=== PATIENT | female | born 1955 | race African-American/Black ===

== ENCOUNTER 2016-05-11 10:14 | Inpatient (IN) | payer OTHER ==
[~2016-05-11] VITALS: Ht 167.6 cm; Wt 51.6 kg
[~2016-05-11 10:14] MED LIST: ALPR1TAB2 PO; CYCL10TA3 OR; DIAZ-104 PO; OMEP20CA5 PO; OXY5T PO; SIMV-8 OR; TEMA15CA91 PO
[2016-05-11] MEDS ORDERED: SODIUM CHLORIDE 0.9% 1,000 ML IV ONE (10:52)
[2016-05-11 11:20] LABS: DEFINITIVE VIEW TRANSMISSION; Eosinophils # (auto) 0.1 uL; Hemoglobin 14.2 g/dL (12.2-16.2); Lymphocytes # (auto) 2.2 uL; SUSPECT VIEW TRANSMISSION; White Blood Cell 6.6 10^3/uL (4.4-10.8)
[2016-05-11 11:36] LABS: INR 1.13 (0.9-1.15); Prothrombin Time 11.6 sec (9.37-12.3)
[2016-05-11 11:40] LABS: Albumin 3.1 g/dL (3.4-5.0); BUN/Creatinine Ratio 12.7; Bilirubin, Total 3.5 mg/dL (0.2-1.0); Calcium 8.6 mg/dL (8.5-10.1); Total Protein 8.2 g/dL (6.4-8.2)
[2016-05-11 11:41] LABS: Basophils # (auto) 0 uL; Basophils % (auto) 0.3 % (0.0-2.0); Eosinophils % (auto) 1.1 % (0.0-7.0); Hematocrit 43.4 % (36.0-46.0); Lymphocytes % (auto) 34.1 % (10.0-50.0); Mean Corpuscular Hemoglobin 25.6 pg (28.0-32.0); Mean Corpuscular Hgb Conc. 32.6 g/dL (32.0-36.0); Mean Corpuscular Volume 78.4 fL (80.0-100.0); Mean Platelet Volume 9.4 fL (7.4-10.4); Monocytes # (auto) 0.7 uL; Monocytes % (auto) 10.6 % (0.0-12.0); Neutrophils # (auto) 3.5 uL; Neutrophils % (auto) 53.9 % (37.0-80.0); Platelet Count (auto) 241 10^3/uL (140-450)
[2016-05-11 11:55] LABS: Red Cell Distribution Width 23.7 % (11.6-16.0)
[2016-05-11 11:56] LABS: Potassium 3.1 mmol/L (3.5-5.1)
[2016-05-11 12:01] LABS: Urine RBC 11 /hpf (0 - 4); Urine Squamous Epithelial Cell MOD /hpf (<5)
[2016-05-11 12:02] LABS: Urine Color Dark Red (Yellow)
[2016-05-11] MEDS ORDERED: LEVOFLOXACIN 500MG 100 ML IV ONE (13:00)
[2016-05-11 13:39] LABS: Anisocytosis Slight; Burr Cells FEW; Hypochromia Slight; Microcytosis Slight; Ovalocytes FEW; Platelet Estimate Adequate
[2016-05-11] MEDS ORDERED: GASTROGRAFIN 120 ML SOL ONE (14:36)
[2016-05-11] MEDS ORDERED: cefTRIAXone 1GM/50ML D5W 50 ML IV ONE (14:45)
[2016-05-11] MEDS ORDERED: HYDROcodone-ACET 5/325MG TAB PO PRN (14:45)
[2016-05-11] MEDS ORDERED: DIAZEPAM 5 MG TAB PO PRN (14:45)
[2016-05-11] MEDS ORDERED: POTASSIUM CHLORIDE 40 MEQ, LIDOCAINE 1% (LOCAL ANESTH.) 4 ML in SODIUM CHL 0.9% 250 ML IV ONE (15:15)
[2016-05-11] MEDS: SODIUM CHLORIDE 0.9% 1,000 ML IV SCH (16:01)
[2016-05-11] MEDS: PANTOPRAZOLE SODIUM 40 MG/10 ML VIAL IV SCH (16:05)
[2016-05-11 16:40] VITALS: BP 142/85
[2016-05-11] MEDS ORDERED: FENT25DI2 TD (18:00)
[2016-05-11] MEDS ORDERED: TEMA30CA PO (18:00)
[2016-05-11] MEDS ORDERED: DIAZ2TAB BC (18:00)
[2016-05-11 20:00] VITALS: BP 124/82
[2016-05-11] MEDS: ONDANSETRON HCL 4 MG/2 ML VIAL IV PRN (20:19)
[2016-05-11 21:31] VITALS: BP 148/76
[2016-05-11] MEDS: MORPHINE SULF INJ 2 MG/ML SYRINGE 1ML IV PRN (22:28)
[2016-05-12] MEDS: SODIUM CHLORIDE 0.9% 1,000 ML IV SCH ×2 (04:05→09:26)
[2016-05-12] MEDS: ONDANSETRON HCL 4 MG/2 ML VIAL IV PRN (04:47)
[2016-05-12 05:29] LABS: DEFINITIVE VIEW TRANSMISSION; Hematocrit 33.7 % (36.0-46.0); Hemoglobin 10.9 g/dL (12.2-16.2); Mean Corpuscular Hemoglobin 24.6 pg (28.0-32.0); Mean Corpuscular Hgb Conc. 32.3 g/dL (32.0-36.0); Mean Platelet Volume 9.3 fL (7.4-10.4); Platelet Count (auto) 201 10^3/uL (140-450); White Blood Cell 5.1 10^3/uL (4.4-10.8)
[2016-05-12 05:34] VITALS: BP 127/76
[2016-05-12 05:45] LABS: Red Cell Distribution Width 23.6 % (11.6-16.0)
[2016-05-12 05:46] LABS: Metamyelocytes % 0; Myelocytes % 0; Promyelocytes % 0; Reactive Lymphocytes 0
[2016-05-12 05:48] LABS: BUN/Creatinine Ratio 12.6; Calcium 7.8 mg/dL (8.5-10.1); Potassium 3.3 mmol/L (3.5-5.1)
[2016-05-12 06:20] LABS: Anisocytosis Slight; Burr Cells FEW; Hypochromia Slight; Microcytosis Slight; Platelet Estimate Adequate
[2016-05-12 09:00] VITALS: BP 115/79
[2016-05-12] MEDS ORDERED: cefTRIAXone 1GM/50ML D5W 50 ML IV SCH (09:00)
[2016-05-12] MEDS: PANTOPRAZOLE SODIUM 40 MG/10 ML VIAL IV SCH (09:14)
[2016-05-12] MEDS: MORPHINE SULF INJ 2 MG/ML SYRINGE 1ML IV PRN (09:26)
[2016-05-12 11:45] LABS: Basophils # (auto) 0 uL; DEFINITIVE VIEW TRANSMISSION; Eosinophils # (auto) 0 uL; Monocytes # (auto) 0.8 uL; Monocytes % (auto) 14.9 % (0.0-12.0); Neutrophils # (auto) 2.8 uL
[2016-05-12 11:48] LABS: Basophils % (auto) 0.3 % (0.0-2.0); Eosinophils % (auto) 0.5 % (0.0-7.0); Hemoglobin 12.3 g/dL (12.2-16.2); Lymphocytes # (auto) 1.6 uL; Lymphocytes % (auto) 30.7 % (10.0-50.0); Mean Corpuscular Hemoglobin 24.8 pg (28.0-32.0); Mean Corpuscular Hgb Conc. 32.2 g/dL (32.0-36.0); Mean Corpuscular Volume 76.9 fL (80.0-100.0); Mean Platelet Volume 9.1 fL (7.4-10.4); Neutrophils % (auto) 53.6 % (37.0-80.0); Platelet Count (auto) 212 10^3/uL (140-450); White Blood Cell 5.2 10^3/uL (4.4-10.8)
[2016-05-12 12:52] LABS: Nucleated Red Blood Cells % 5.9 %; Red Cell Distribution Width 24.1 % (11.6-16.0)
[2016-05-12 13:00] VITALS: BP 144/87
[2016-05-12] MEDS ORDERED: POTASSIUM CHL 10% (20 MEQ/15ML) ORAL SOLN PO ONE (13:15)
[2016-05-12 14:32] LABS: Anisocytosis Slight; Hypochromia Slight; Platelet Estimate Adequate
[2016-05-12 17:06] VITALS: BP 141/77
[2016-05-12 17:36] VITALS: BP 141/77
== END 2016-05-12 19:30 | DRG 690 ==
LOC: ER 10:25 → OVERFLOW 10:26 → EAST 16:23 → WEST WING 18:28
PROVIDERS: ADMIT Internal Medicine; ATTEND Internal Medicine
DX: N39.0 Urinary tract infection, site not specified (principal); R31.9 Hematuria, unspecified; E87.6 Hypokalemia; F20.9 Schizophrenia, unspecified; F32.9 Major depressive disorder, single episode, unspecified; F41.9 Anxiety disorder, unspecified; K21.9 Gastro-esophageal reflux disease without esophagitis; K75.9 Inflammatory liver disease, unspecified; D63.8 Anemia in other chronic diseases classified elsewhere; G89.29 Other chronic pain; M54.5 Low back pain; G47.00 Insomnia, unspecified; F12.10 Cannabis abuse, uncomplicated; Z79.899 Other long term (current) drug therapy; Z90.49 Acquired absence of other specified parts of digestive tract; Z82.49 Family history of ischemic heart disease and other diseases of the circulatory system; Z83.3 Family history of diabetes mellitus; Z98.84 Bariatric surgery status; Z90.710 Acquired absence of both cervix and uterus
CPT/HCPCS: 36415; 71010; 74176; 74220; 76775; 80048; 80053; 81001; 85007; 85025; 85027; 85610; 85730; 87081; 87086; 93005; 96365; 97001; C9113; J0696; J1956; J2001; J2405

== ENCOUNTER 2017-01-01 10:39 | Observation (INO) | payer OTHER ==
[~2017-01-01] VITALS: Ht 165.1 cm; Wt 59.0 kg
[~2017-01-01 10:39] MED LIST changes: -ALPR1TAB2 PO; -DIAZ-104 PO; +DIAZ2TAB BC; +FENT25DI2 TD; -OMEP20CA5 PO; +OMEP20CA74 PO; -SIMV-8 OR; -TEMA15CA91 PO; +TEMA30CA PO
[2017-01-01 11:52] LABS: Basophils # (auto) 0 uL; Basophils % (auto) 0.8 % (0.0-2.0); Eosinophils # (auto) 0 uL; Eosinophils % (auto) 0.5 % (0.0-7.0); Hematocrit 37.6 % (36.0-46.0); Hemoglobin 12.6 g/dL (12.2-16.2); Lymphocytes # (auto) 1.2 uL; Mean Corpuscular Hemoglobin 29.7 pg (28.0-32.0); Mean Corpuscular Hgb Conc. 33.5 g/dL (32.0-36.0); Mean Corpuscular Volume 88.6 fL (80.0-100.0); Mean Platelet Volume 7.1 fL (6.9-10.8); Monocytes # (auto) 0.3 uL; Monocytes % (auto) 8.9 % (0.0-12.0); Neutrophils # (auto) 1.7 uL; Neutrophils % (auto) 52.8 % (37.0-80.0); Nucleated Red Blood Cells % 0.2 %; Platelet Count (auto) 368 10^3/uL (140-450); Red Cell Distribution Width 13.6 % (11.8-14.3); White Blood Cell 3.2 10^3/uL (4.4-10.8)
[2017-01-01 12:03] LABS: INR 1.06 (0.9-1.15); Partial Thromboplastin Time 25.1 sec (22.64-33.71); Prothrombin Time 11.6 sec (9.37-12.3)
[2017-01-01 12:11] LABS: Albumin 3.9 g/dL (3.4-5.0); BUN/Creatinine Ratio 5.6; Bilirubin, Total 0.5 mg/dL (0.2-1.0); Calcium 9.1 mg/dL (8.5-10.1); Magnesium 1.7 mg/dL (1.6-2.6); Total Protein 9.4 g/dL (6.4-8.2)
[2017-01-01 12:14] LABS: Potassium 2.9 mmol/L (3.5-5.1)
[2017-01-01] MEDS ORDERED: SODIUM CHLORIDE 0.9% 1,000 ML IVB ONE (15:03)
[2017-01-01] MEDS ORDERED: MEPERIDINE HCL (25 MG/ML) 1ML VIAL IV ONE (15:45)
[2017-01-01] MEDS ORDERED: ONDANSETRON HCL 4 MG/2 ML VIAL IV ONE (15:45)
[2017-01-01 17:06] VITALS: BP 145/88
[2017-01-01] MEDS ORDERED: POTASSIUM CHL 20 Meq TABLET PO ONE ×2 (19:00)
[2017-01-01] MEDS: POTASSIUM CHL 10MEQ/100ML 100 ML IV SCH ×2 (19:00→19:06)
[2017-01-01] MEDS ORDERED: POTASSIUM CHL 10% (20 MEQ/15ML) 15ml ORAL SOLN PO ONE ×2 (19:15)
== END 2017-01-01 19:25 | disposition home or self-care (01) | DRG 392 ==
LOC: EDUNIT# 10:39 → ER 10:39 → OVERFLOW 11:29 → ER 18:57
PROVIDERS: ADMIT Family Medicine; ATTEND Family Medicine
DX: R10.12 Left upper quadrant pain (principal); F20.9 Schizophrenia, unspecified; E78.5 Hyperlipidemia, unspecified; E87.6 Hypokalemia; K21.9 Gastro-esophageal reflux disease without esophagitis; K22.4 Dyskinesia of esophagus; Z82.49 Family history of ischemic heart disease and other diseases of the circulatory system; Z83.3 Family history of diabetes mellitus; Z90.49 Acquired absence of other specified parts of digestive tract; Z98.84 Bariatric surgery status; F41.9 Anxiety disorder, unspecified
CPT/HCPCS: 36415; 71010; 74176; 80053; 82150; 83690; 83735; 85025; 85610; 85730; 93005; 96361; 96365; 96375; 99285; G0378; J2175; J2405

== ENCOUNTER 2018-07-01 10:39 | Inpatient (IN) | payer OTHER ==
[~2018-07-01] VITALS: Ht 167.6 cm; Wt 64.2 kg
[2018-07-01] VITALS (12 sets, daily range): BP systolic 98–139; BP diastolic 60–89
[2018-07-01 11:37] LABS: Basophils # (auto) 0.1 uL; Eosinophils # (auto) 0 uL; Monocytes # (auto) 0.2 uL; Neutrophils # (auto) 1.6 uL; White Blood Cell 3.2 10^3/uL (4.4-10.8)
[2018-07-01 11:55] LABS: Basophils % (auto) 3.2 % (0.0-2.0); Eosinophils % (auto) 0.2 % (0.0-7.0); Hematocrit 16.4 % (36.0-46.0); Lymphocytes # (auto) 1.2 uL; Lymphocytes % (auto) 38.7 % (10.0-50.0); Mean Corpuscular Hemoglobin 15.7 pg (28.0-32.0); Mean Corpuscular Hgb Conc. 26.9 g/dL (32.0-36.0); Mean Corpuscular Volume 58.5 fL (80.0-100.0); Monocytes % (auto) 6.3 % (0.0-12.0); Neutrophils % (auto) 51.6 % (37.0-80.0); Nucleated Red Blood Cells % 0.3 %; Platelet Count (auto) 411 10^3/uL (140-450); Red Blood Cells 2.81 10^6/uL (4.0-5.20)
[2018-07-01 11:57] LABS: Albumin 3.3 g/dL (3.4-5.0); Anion Gap 10 (5-15); Blood Urea Nitrogen 8 mg/dL (7-18); Calcium 8.4 mg/dL (8.5-10.1); Carbon Dioxide 30 mmol/L (21-32); Chloride 103 mmol/L (98-107); Glucose 106 mg/dL (74-106); Hemoglobin 4.4 g/dL (12.2-16.2); Red Cell Distribution Width 20.1 % (11.8-14.3); Sodium 143 mmol/L (136-145)
[2018-07-01 12:03] LABS: Alanine Aminotransferase 10 U/L (13-56); Alkaline Phosphatase 48 U/L (45-117); Aspartate Aminotransferase 12 U/L (15-37); BUN/Creatinine Ratio 9.1; Bilirubin, Total 0.3 mg/dL (0.2-1.0); GFR African American 83 mL/min; GFR Non-African American 69 mL/min; Total Protein 8.3 g/dL (6.4-8.2)
[2018-07-01 12:09] LABS: Potassium 2.6 mmol/L (3.5-5.1)
[2018-07-01] MEDS ORDERED: POTASSIUM CHL 10% (20 MEQ/15ML) 15ml ORAL SOLN PO ONE ×2 (12:15→13:15)
[2018-07-01] MEDS ORDERED: SODIUM CHLORIDE 0.9% 1,000 ML IVB ONE (12:19)
[2018-07-01] MEDS ORDERED: SODIUM CHLORIDE 0.9% 1,000 ML IV ONE (12:19)
[2018-07-01 12:45] LABS: Partial Thromboplastin Time 17.2 sec (23.78-33.04); Prothrombin Time 10.7 sec (9.27-12.13)
[2018-07-01] MEDS ORDERED: NITROGLYCERIN 0.4 MG SL TAB SL PRN (15:30)
[2018-07-01] MEDS ORDERED: MORPHINE SULF INJ 2 MG/ML SYRINGE 1ML IV PRN (15:30)
[2018-07-01] MEDS ORDERED: ONDANSETRON HCL 4 MG/2 ML VIAL IV PRN (15:30)
[2018-07-01 18:32] LABS: Urine Bacteria MOD /hpf (None Seen); Urine Blood Negative /uL (Negative); Urine Mucus FEW (None Seen); Urine Specific Gravity 1.018 (1.001-1.035); Urine WBC 566 /hpf (0 - 5); Urine WBC Clumps PRESENT /hpf (None Seen)
[2018-07-01 20:18] LABS: BUN/Creatinine Ratio 11.1; Calcium 8.1 mg/dL (8.5-10.1)
[2018-07-01 20:20] LABS: Bilirubin, Total 0.5 mg/dL (0.2-1.0); Total Protein 7.8 g/dL (6.4-8.2)
[2018-07-01 20:25] LABS: Potassium 2.9 mmol/L (3.5-5.1)
[2018-07-01 20:44] LABS: Hemoglobin 7.7 g/dL (12.2-16.2)
[2018-07-01 20:46] LABS: Hematocrit 25.9 % (36.0-46.0)
[2018-07-02] VITALS (10 sets, daily range): BP systolic 121–147; BP diastolic 74–95
[2018-07-02] MEDS: MORPHINE SULF INJ 2 MG/ML SYRINGE 1ML IV PRN ×3 (02:44→20:19)
--- NOTE | 2018-07-02 03:20 | NUR ---
OPENING NOTES RECEIVED PT FROM ED WITH NO SBAR HANDOFF REPORT. PT IS A/OX4 WITH NO S/S OF DISTRESS NOR PAIN WHILE ON ROOM AIR. PT HAS SLIGHT WEAKNESS IN EXTREMITY. PT HAS FOURTH AND LAST UNIT OF PRBC TRANSFUSING. BED IS IN LOWEST POSITION WITH SIDE RAILS UP X 2. BED BRAKES ARE LOCKED AND CALL LIGHT IS WITH IN REACH. HOB IS 30 DEGREES. WILL CONTINUE TO MONITOR Q 1 HR.
--- NOTE | 2018-07-02 04:10 | NUR ---
LAST SCHEDULED TRANSFUSION LAST SCHEDULED TRANSFUSION FINISHED. PATIENT SHOW NO S/S OF DISTRESS AND VS ARE WNL. WILL CONTINUE TO MONITOR Q 1HR.
[2018-07-02] MEDS ORDERED: CLON0.5T PO (05:42)
[2018-07-02] MEDS ORDERED: ZOLP-158 PO (05:42)
[2018-07-02] MEDS ORDERED: OLAN20TA13 PO (05:43)
--- NOTE | 2018-07-02 07:06 | NUR ---
Dr. Vega paged regarding K 2.9, awaiting to call back.
--- NOTE | 2018-07-02 07:10 | NUR ---
Dr. Kenney Cai at bedside discussed with patient , will perform EGD on Tuesday and colonoscopy on Tuesday, patient verbalized understanding.
--- NOTE | 2018-07-02 07:12 | NUR ---
CLOSING NOTES ENDORSED CARE TO DAY SHIFT NURSEJOE.
--- NOTE | 2018-07-02 07:20 | NUR ---
Opening Shift Note Assumed care of patient, awake and alert. No S/S of distress/SOB or pain. Instructed on POC and to call for assist PRN, will continue to monitor for changes Q1hr and PRN.
--- NOTE | 2018-07-02 07:39 | NUR ---
Melodie (House sup) notified regarding patient will have a procedure on Tuesday and Tuesday.
[2018-07-02 08:00] LABS: Eosinophils # (auto) 0 uL; Eosinophils % (auto) 0.1 % (0.0-7.0); Red Blood Cells 4.34 10^6/uL (4.0-5.20)
[2018-07-02 08:02] LABS: Basophils # (auto) 0 uL; Basophils % (auto) 0.5 % (0.0-2.0); Hematocrit 30.5 % (36.0-46.0); Hemoglobin 9.6 g/dL (12.2-16.2); Lymphocytes # (auto) 0.9 uL; Lymphocytes % (auto) 21.5 % (10.0-50.0); Mean Corpuscular Hemoglobin 22.2 pg (28.0-32.0); Mean Corpuscular Hgb Conc. 31.5 g/dL (32.0-36.0); Mean Corpuscular Volume 70.3 fL (80.0-100.0); Monocytes # (auto) 0.2 uL; Monocytes % (auto) 4.7 % (0.0-12.0); Neutrophils # (auto) 3.1 uL; Neutrophils % (auto) 73.2 % (37.0-80.0); Nucleated Red Blood Cells % 0.2 %; Platelet Count (auto) 313 10^3/uL (140-450); White Blood Cell 4.2 10^3/uL (4.4-10.8)
[2018-07-02 08:08] LABS: Red Cell Distribution Width 28.7 % (11.8-14.3)
[2018-07-02 08:13] LABS: BUN/Creatinine Ratio 11.3; Magnesium 1.5 mg/dL (1.6-2.6)
[2018-07-02 08:18] LABS: Potassium 2.7 mmol/L (3.5-5.1)
--- NOTE | 2018-07-02 08:45 | NUR ---
Received a call from Dr. Vega , new orders received, noted and carried out.
[2018-07-02] MEDS: POTASSIUM CHL 20MEQ/100ML 100 ML IV SCH ×2 (09:04→11:21)
--- NOTE | 2018-07-02 10:15 | NUR ---
Dr. Vega at bedside.
[2018-07-02] MEDS ORDERED: CYANOCOBALAMIN 500 MCG TAB PO SCH (12:30)
[2018-07-02] MEDS ORDERED: CYANOCOBALAMIN 500 MCG TAB PO ONE (12:45)
[2018-07-02] MEDS: MAGNESIUM SULFATE 1GM/100ML 100 ML IV SCH ×3 (13:12→16:39)
[2018-07-02] MEDS: SODIUM FERR GLUC 62.5MG/5ML 125 MG in SODIUM CHL 0.9% 100 ML IV SCH (13:53)
--- NOTE | 2018-07-02 13:56 | NUR ---
IV insertion IV access obtained, via clean sterile technique by inserting 22 gauge catheter at after attempt(s). IV secured properly. No trauma to site. Patient tolerated procedure well.
--- NOTE | 2018-07-02 16:30 | NUR ---
Consent for EGD and colonoscopy signed by her mother (Tanika Mendiola ).
[2018-07-02 20:54] LABS: Chloride 104 mmol/L (98-107); Potassium 3.1 mmol/L (3.5-5.1); Sodium 139 mmol/L (136-145)
[2018-07-02 20:58] LABS: Anion Gap 11 (5-15); Blood Urea Nitrogen 5 mg/dL (7-18); Calcium 8.2 mg/dL (8.5-10.1); Carbon Dioxide 24 mmol/L (21-32); Glucose 100 mg/dL (74-106)
[2018-07-02 21:01] LABS: BUN/Creatinine Ratio 6.1; GFR African American 90 mL/min; GFR Non-African American 75 mL/min
--- NOTE | 2018-07-03 | NUR ---
Assumed care of pt Pt currently awake and laying in bed. No signs of distress noted. Call light within reach. Will continue to monitor.
[2018-07-03] MEDS: MORPHINE SULF INJ 2 MG/ML SYRINGE 1ML IV PRN ×3 (03:08→23:09)
[2018-07-03 05:00] VITALS: BP 126/77
--- NOTE | 2018-07-03 07:25 | NUR ---
OPENING NOTE Assumed care of patient from NOC RNJack. Patient awake and alert with no S/S of distress/SOB or pain. Instructed on POC and to call for assist PRN, verbalized understanding. Bed in lowest, locked position with side rails up x2. Fall precautions in place and call light within reach. Will continue to monitor for changes Q1hr and PRN.
[2018-07-03 08:13] VITALS: BP 126/71
[2018-07-03] MEDS ORDERED: diphenhdrAMINE HCL 50 MG/1 ML VL ONE (08:26)
[2018-07-03] MEDS ORDERED: SODIUM CHLORIDE LOCK 10 ML ONE (08:26)
[2018-07-03] MEDS ORDERED: LIDOCAINE VISCOUS 2% 15ML UD ONE (08:26)
[2018-07-03 09:39] LABS: Folate (Folic Acid) 6.42 ng/mL (5.38-24)
[2018-07-03] MEDS: CYANOCOBALAMIN (B-12) 1000 MCG/1 ML VIAL IM SCH (10:33)
--- NOTE | 2018-07-03 11:15 | NUR ---
NUTRITION CONSULT/ASSESSMENT NOTES Please refer to link notes of nutrition screen form filed under the intervention section of the plan of care for further details. Est. Needs: 1550 kcal to 1850 kcal (25-30 kcal/kgBW), 62 gms to 75 gms pro (1.0-1.2 gms/kgBW). Will continue to monitor pertinent labs and reassess nutrient need prn Thank you for this consult. Addendum: 07/03/18 at [address] Amended: Links added.
[2018-07-03 11:52] VITALS: BP 131/76
[2018-07-03] MEDS: SODIUM FERR GLUC 62.5MG/5ML 125 MG in SODIUM CHL 0.9% 100 ML IV SCH (12:19)
--- NOTE | 2018-07-03 12:20 | NUR ---
PAGED Left message for Dr. Ayala Moulton regarding order for bowel prep (Golytely). Awaiting call back.
--- NOTE | 2018-07-03 12:40 | NUR ---
OFF UNIT Patient taken off unit via bed for scheduled EGD. No S/S of distress noted.
[2018-07-03] MEDS ORDERED: GOLYTELY 4L KIT PO ONE (13:30)
[2018-07-03] MEDS: MIDAZOLAM HCL 5 MG/ML-1ML VIAL ONE ×3 (13:31→13:37)
[2018-07-03] MEDS: fentaNYL CITRATE 100 MCG/2 ML VL ONE ×2 (13:31→13:34)
--- NOTE | 2018-07-03 13:40 | NUR ---
GOLYTELY Patient off unit, until to administer Golytely at this time.
--- NOTE | 2018-07-03 14:30 | NUR ---
RETURN TO UNIT Patient returned to unit via bed. No S/S of distress noted. Will continue to monitor.
--- NOTE | 2018-07-03 14:55 | NUR ---
XRAY/MED Received call from xray stating patient needs to remain NPO for small bowel series. Unable to administer Golytely at this time.
--- NOTE | 2018-07-03 16:10 | NUR ---
OFF UNIT Patient taken off unit via bed for small bowel series.
[2018-07-03] MEDS ORDERED: GASTROGRAFIN 120 ML SOL ONE (16:11)
--- NOTE | 2018-07-03 18:16 | NUR ---
RETURN TO UNIT Patient returned to unit via bed. No S/S of distress noted.
--- NOTE | 2018-07-03 19:20 | NUR ---
BUDDY Spoke with technology support analyst, states they still need to do one more series of images around 8:15. Until then patient needs to remain NPO. Patient aware.
--- NOTE | 2018-07-03 19:35 | NUR ---
CLOSING NOTE Endorsed care of patient to NOC RNOrestes. RN aware that patient still needs to take Golytely.
[2018-07-03 22:00] VITALS: BP 122/69
--- NOTE | 2018-07-03 22:00 | NUR ---
Call from radiology: Small bowel series done It could be started with the Roberto
[2018-07-04 05:00] VITALS: BP 104/51
[2018-07-04 06:51] LABS: Basophils # (auto) 0.1 uL; Eosinophils # (auto) 0 uL; Mean Corpuscular Hemoglobin 22.2 pg (28.0-32.0); Monocytes # (auto) 0.4 uL
[2018-07-04 06:54] LABS: Basophils % (auto) 0.9 % (0.0-2.0); Eosinophils % (auto) 0.2 % (0.0-7.0); Hemoglobin 9.8 g/dL (12.2-16.2); Lymphocytes # (auto) 1.5 uL; Lymphocytes % (auto) 18.6 % (10.0-50.0); Mean Corpuscular Hgb Conc. 30.8 g/dL (32.0-36.0); Mean Corpuscular Volume 72.2 fL (80.0-100.0); Monocytes % (auto) 4.8 % (0.0-12.0); Neutrophils # (auto) 5.9 uL; Neutrophils % (auto) 75.5 % (37.0-80.0); Nucleated Red Blood Cells % 0.2 %; Platelet Count (auto) 321 10^3/uL (140-450); Red Blood Cells 4.43 10^6/uL (4.0-5.20); White Blood Cell 7.8 10^3/uL (4.4-10.8)
[2018-07-04 06:58] LABS: Red Cell Distribution Width 29.7 % (11.8-14.3)
[2018-07-04 07:07] LABS: % Iron Saturation 9.4 % (15-50)
--- NOTE | 2018-07-04 07:30 | NUR ---
Opening Shift Note Assumed care of patient, awake and alert. No S/S of distress/SOB or pain. Patient bowel movement is not clear yet. Per night nurse bowel prep (Rl) was started at 10pm last night. Instructed on POC and to call for assist PRN, will continue to monitor for changes Q1hr and PRN.
[2018-07-04 07:35] LABS: Calcium 8.4 mg/dL (8.5-10.1)
[2018-07-04 07:38] LABS: BUN/Creatinine Ratio 7.5
--- NOTE | 2018-07-04 07:45 | NUR ---
Called pre-op. Spoke to Eda, asked if patient is on the list for pre-op today. Eda states patient is not on the list.
[2018-07-04 08:39] VITALS: BP 115/68
[2018-07-04] MEDS: CYANOCOBALAMIN (B-12) 1000 MCG/1 ML VIAL IM SCH (10:20)
--- NOTE | 2018-07-04 11:00 | NUR ---
PT ALREADY UP WITH NURSING. ATTEMPT P.T. LATER.
[2018-07-04 12:01] VITALS: BP 117/65
[2018-07-04] MEDS: SODIUM FERR GLUC 62.5MG/5ML 125 MG in SODIUM CHL 0.9% 100 ML IV SCH (12:38)
[2018-07-04] MEDS: MORPHINE SULF INJ 2 MG/ML SYRINGE 1ML IV PRN (14:41)
--- NOTE | 2018-07-04 16:00 | NUR ---
Dr. Ayala Moulton at [facility]. Addendum: 07/04/18 at 1925 by SHELLEY DOWNS RN wrong time
[2018-07-04 16:48] VITALS: BP 118/71
--- NOTE | 2018-07-04 17:00 | NUR ---
Dr. Vega at bedside.
[2018-07-04] MEDS: POTASSIUM CHL 20MEQ/100ML 100 ML IV SCH ×2 (17:36→18:47)
--- NOTE | 2018-07-04 18:00 | NUR ---
Dr. Aayla Moulton at bedside.
--- NOTE | 2018-07-04 19:00 | NUR ---
Closing note Patient resting in bed, no signs of distress.
--- NOTE | 2018-07-04 19:00 | NUR ---
OPENING NOTE Received report from day shift RN. Patient is A&O X's 4 with no s/s of distress noted and reports no pain. Educated patient on POC and to use call light when in need of assistance. Patient verbalized understanding. Patient receiving KCl 20 mEQ at 50 ml/hr at this time. Reports no pain to IV site. Bed is in lowest/locked position with side rails up X's 2 and call light within reach of patient. Commode is at bedside. Educated patient that this is a diaper free facility, patient verbalized understanding. Will continue to monitor and round hourly/PRN.
[2018-07-05] MEDS: ACETAMINOPHEN 325 MG TAB PO PRN ×2 (00:38→22:58)
--- NOTE | 2018-07-05 01:45 | NUR ---
ELEVATED TEMPERATURE Oral temperature is still elevated after giving 650mg of acetaminophen. It is currently at 101.6. Initiated cooling measures again. Will continue to monitor
[2018-07-05 02:47] VITALS: BP 141/72
--- NOTE | 2018-07-05 02:48 | NUR ---
TEMPERATURE REASSESSMENT Temp is 100.6 , Will continue cooling measures.
[2018-07-05 05:33] VITALS: BP 128/68
[2018-07-05 06:17] LABS: Eosinophils # (auto) 0 uL; Hemoglobin 8.4 g/dL (12.2-16.2); Nucleated Red Blood Cells % 0.2 %
[2018-07-05 06:19] LABS: Basophils # (auto) 0 uL; Basophils % (auto) 0.4 % (0.0-2.0); Eosinophils % (auto) 0.2 % (0.0-7.0); Lymphocytes # (auto) 1.2 uL; Lymphocytes % (auto) 21.4 % (10.0-50.0); Mean Corpuscular Hemoglobin 22.7 pg (28.0-32.0); Mean Corpuscular Hgb Conc. 31.2 g/dL (32.0-36.0); Mean Corpuscular Volume 72.7 fL (80.0-100.0); Monocytes # (auto) 0.4 uL; Monocytes % (auto) 6.7 % (0.0-12.0); Neutrophils # (auto) 4.1 uL; Neutrophils % (auto) 71.3 % (37.0-80.0); Platelet Count (auto) 263 10^3/uL (140-450); Red Blood Cells 3.71 10^6/uL (4.0-5.20); White Blood Cell 5.7 10^3/uL (4.4-10.8)
[2018-07-05 06:20] LABS: Red Cell Distribution Width 29.6 % (11.8-14.3)
[2018-07-05 06:31] LABS: Calcium 7.8 mg/dL (8.5-10.1); Magnesium 1.6 mg/dL (1.6-2.6)
[2018-07-05 06:38] LABS: BUN/Creatinine Ratio 9.1
[2018-07-05 06:40] LABS: Potassium 2.4 mmol/L (3.5-5.1)
--- NOTE | 2018-07-05 06:46 | NUR ---
CRITICAL POTASSIUM 2.4 Left message for
[2018-07-05] MEDS: D5W/SOD CHLO 0.9% 1,000 ML IV SCH ×3 (07:34→20:10)
--- NOTE | 2018-07-05 08:09 | NUR ---
SPOKE WITH DONALDO Spoke with Donaldo, returning call from [facility]. He is aware of low potassium. New orders given. Day shift RN aware
[2018-07-05] MEDS ORDERED: POTASSIUM CHL 20MEQ/100ML 100 ML IV ONE (08:15)
[2018-07-05] MEDS ORDERED: POTASSIUM CHL 20 Meq TABLET PO ONE (08:15)
[2018-07-05 09:07] VITALS: BP 116/71
[2018-07-05] MEDS ORDERED: GASTROGRAFIN 120 ML SOL ONE ×2 (09:30→10:16)
[2018-07-05] MEDS ORDERED: EZ-GAS II GRANULES (RADIOLOGY USE) PO ONE (09:36)
[2018-07-05] MEDS: CYANOCOBALAMIN (B-12) 1000 MCG/1 ML VIAL IM SCH (09:44)
[2018-07-05 11:39] VITALS: BP 145/90
--- NOTE | 2018-07-05 11:55 | NUR ---
Midline Placement: Patient educated on need for midline placement. All risks and benefits explained and all questions and concerns addresses prior to procedure. 18g/10cm midline inserted via right basilic vein using Ultrasound. Sterile technique utilized. Blood return obtained from the lumen and flushed easily with NS using proper technique. Midline secured with saline lock; biodisc and occlusive dressing applied. Primary RN notified. Midline lot # [id number]. x1 attempt
[2018-07-05] MEDS: SODIUM FERR GLUC 62.5MG/5ML 125 MG in SODIUM CHL 0.9% 100 ML IV SCH (14:00)
--- NOTE | 2018-07-05 14:05 | NUR ---
Nutrition Follow-up Notes Wt.: 58.0 kg Pt was sleeping with no family by bedside. per pt records pt s/p EGD and with esophagitis. pt with hx of merle Y. pt with no distress noted currently on clear liq diet with adequate PO of 100% x 4 per RN doc Est. Needs: 1550 kcal to 1850 kcal (25-30 kcal/kgBW), 62 gms to 75 gms pro (1.0-1.2 gms/kgBW). Will continue to monitor pertinent labs and reassess nutrient need prn Labs: CA 7.8 L, ALB 3.0 L. rest lab wnl Skin: Bo scale 19 low risk, skin intact per power barker operator. GI: Pt had 2 BM 07/04 per power barker operator. PES: Altered nutrition related lab values r/t current/chronic medical condition aeb low. hypokalemia, hypocalcemia Increased nutrient needs r/t current medical condition aeb Severe anemia,NPO. Will continue to monitor PO intake, skin status, pertinent labs and weight trend. F/u in 2-3 days. Rec.: 1.) Advance gradually to oral diet (with Ensure Enlive 1 carton BID) when medically appropriate. 2.) Refer to RD for further nutrition education and weight monitoring upon discharged. 3.) Continue current plan of care.
--- NOTE | 2018-07-05 15:00 | NUR ---
PT DECLINED P.T. BECAUSE OF DIARRHEA
[2018-07-05] MEDS: MORPHINE SULF INJ 2 MG/ML SYRINGE 1ML IV PRN ×2 (15:29→23:38)
[2018-07-05 16:31] VITALS: BP 153/70
[2018-07-05] MEDS: MAGNESIUM SULFATE 1GM/100ML 100 ML IV SCH ×3 (17:58→20:06)
--- NOTE | 2018-07-05 17:59 | NUR ---
CALLED LAB TO CHECK ON POTASSIUM DRAW THEY WILL CALL [facility]
--- NOTE | 2018-07-05 19:20 | NUR ---
OPENING NOTE Received report from day shift RN. Patient is sitting in bed with no s/s of distress noted and is not complaining of any pain at this time. Educated patient on POC and to use call light when in need of assistance and getting up to bedside commode. Patient verbalized understanding. Patient's linen and gown was changed at this time. Bed is in lowest/locked position with side rails up X's 2. Call light is within reach of patient. Will continue to monitor for changes and round hourly/PRN.
--- NOTE | 2018-07-05 19:46 | NUR ---
CRITICAL POTASSIUM. NEW ORDERS RECEIVED Spoke with DR. Vega, he is aware of potassium of 2.9. New orders received
[2018-07-05] MEDS: POTASSIUM CHL 20MEQ/100ML 100 ML IV SCH ×2 (21:26→23:37)
[2018-07-06 02:24] VITALS: BP 137/78
[2018-07-06 05:28] VITALS: BP 109/70
[2018-07-06 06:16] LABS: Basophils # (auto) 0 uL; Eosinophils # (auto) 0 uL; Hematocrit 26.1 % (36.0-46.0); Hemoglobin 8.2 g/dL (12.2-16.2); Monocytes # (auto) 0.5 uL; Neutrophils # (auto) 3.2 uL; Platelet Count (auto) 236 10^3/uL (140-450); White Blood Cell 4.7 10^3/uL (4.4-10.8)
[2018-07-06 06:18] LABS: Basophils % (auto) 0.3 % (0.0-2.0); Lymphocytes # (auto) 0.9 uL; Lymphocytes % (auto) 19.9 % (10.0-50.0); Mean Corpuscular Hgb Conc. 31.5 g/dL (32.0-36.0); Monocytes % (auto) 11.2 % (0.0-12.0); Neutrophils % (auto) 68.6 % (37.0-80.0); Nucleated Red Blood Cells % 0.2 %; Red Blood Cells 3.57 10^6/uL (4.0-5.20)
[2018-07-06 06:23] LABS: Red Cell Distribution Width 30.8 % (11.8-14.3)
[2018-07-06 06:31] LABS: BUN/Creatinine Ratio 9.4; Calcium 7.3 mg/dL (8.5-10.1); Magnesium 2.3 mg/dL (1.6-2.6); Phosphorus 3.3 mg/dL (2.5-4.90)
[2018-07-06 06:34] LABS: Potassium 2.8 mmol/L (3.5-5.1)
--- NOTE | 2018-07-06 06:47 | NUR ---
CRITICAL LAB Potassium 2.8. Left message for Dr. Vega
--- NOTE | 2018-07-06 07:01 | NUR ---
RECEIVED CALL BACK FROM [facility] He is aware of critical potassium. New orders given.
[2018-07-06] MEDS ORDERED: POTASSIUM CHL 20 Meq TABLET PO ONE (07:15)
[2018-07-06] MEDS ORDERED: POTASSIUM CHL 20MEQ/100ML 100 ML IV ONE (07:15)
[2018-07-06 09:00] VITALS: BP 130/78
[2018-07-06] MEDS: CYANOCOBALAMIN (B-12) 1000 MCG/1 ML VIAL IM SCH (10:01)
[2018-07-06] MEDS: D5W/SOD CHLO 0.9% 1,000 ML IV SCH (10:02)
--- NOTE | 2018-07-06 10:20 | NUR ---
Hospitalist babs. Dr. Vega in to see patient. She verbalized that she want to go home today. Discharge order pending.
--- NOTE | 2018-07-06 10:30 | NUR ---
Advance diet Verbal order from Dr. Vega to advance diet as tolerated. Patient states that she has not eaten any regular diet since admission and would like to know that she can tolerate her meals before going home. Ensure ordered.
[2018-07-06] MEDS ORDERED: Ensure HIGH Protein Chocolate 8oz Bottle PO SCH ×2 (12:00→18:00)
[2018-07-06 13:00] VITALS: BP 141/76
[2018-07-06] MEDS: IRON SUCROSE COMPLEX 200 MG in SODIUM CHL 0.9% 100 ML IV SCH (13:02)
[2018-07-06 17:00] VITALS: BP 137/80
[2018-07-06] MEDS: LEVOFLOXACIN 500MG 100 ML IV SCH (18:19)
[2018-07-06] MEDS: Ensure HIGH Protein Vanilla 8oz Bottle PO SCH (18:19)
--- NOTE | 2018-07-06 19:30 | NUR ---
OPENING SHIFT NOTE Patient in bed alert and oriented x 4, verbally coherent, able to make needs known. Patient denies pain and discomfort at this time. Per patient, was only able to finish 25% of her dinner tray. Plan of care discussed, patient verbalized understanding.
--- NOTE | 2018-07-06 19:55 | NUR ---
Dr Moulton at bedside, discussed plan of care with patient. Per Dr. Moulton, patient will not be able to tolerate regular diet and needs to be on a thickened fluid diet. Dr. Moulton made Dr. Vega aware. Will continue to monitor.
[2018-07-06] MEDS: metroNIDAZOLE 500MG/100ML 100 ML IV SCH (21:57)
[2018-07-06] MEDS: MORPHINE SULF INJ 2 MG/ML SYRINGE 1ML IV PRN (22:07)
[2018-07-07 01:01] VITALS: BP 138/84
[2018-07-07] MEDS: MORPHINE SULF INJ 2 MG/ML SYRINGE 1ML IV PRN ×3 (04:35→18:00)
[2018-07-07] MEDS: D5W/SOD CHLO 0.9% 1,000 ML IV SCH ×2 (04:36→13:19)
[2018-07-07 05:23] VITALS: BP 133/80
[2018-07-07] MEDS: metroNIDAZOLE 500MG/100ML 100 ML IV SCH ×3 (05:30→21:36)
[2018-07-07 06:54] LABS: Eosinophils # (auto) 0 uL; Monocytes # (auto) 0.5 uL; White Blood Cell 6.5 10^3/uL (4.4-10.8)
[2018-07-07 06:56] LABS: Basophils # (auto) 0 uL; Basophils % (auto) 0.3 % (0.0-2.0); Hemoglobin 9.5 g/dL (12.2-16.2); Lymphocytes # (auto) 1.4 uL; Lymphocytes % (auto) 21.1 % (10.0-50.0); Mean Corpuscular Hemoglobin 24.1 pg (28.0-32.0); Mean Corpuscular Hgb Conc. 32.7 g/dL (32.0-36.0); Mean Corpuscular Volume 73.6 fL (80.0-100.0); Monocytes % (auto) 8.2 % (0.0-12.0); Neutrophils # (auto) 4.6 uL; Neutrophils % (auto) 70.4 % (37.0-80.0); Nucleated Red Blood Cells % 0.1 %; Platelet Count (auto) 223 10^3/uL (140-450); Red Blood Cells 3.95 10^6/uL (4.0-5.20)
[2018-07-07 07:05] LABS: BUN/Creatinine Ratio 16.1; Calcium 7.7 mg/dL (8.5-10.1); Magnesium 1.9 mg/dL (1.6-2.6); Phosphorus 2.4 mg/dL (2.5-4.90); Potassium 3.3 mmol/L (3.5-5.1)
[2018-07-07 07:25] LABS: Red Cell Distribution Width 32.8 % (11.8-14.3)
--- NOTE | 2018-07-07 07:43 | NUR ---
OPENING SHIFT NOTE PATIENT RESTING COMFORTABLY IN BED AT THIS TIME. NO S/S OF DISTRESS OR SOB NOTED. BED IN LOWEST LOCKED POSITION, CALL LIGHT WITHIN REACH. WILL CONTINUE TO MONITOR.
[2018-07-07] MEDS: Ensure HIGH Protein Vanilla 8oz Bottle PO SCH ×3 (08:00→18:24)
[2018-07-07 08:49] VITALS: BP 142/83
[2018-07-07] MEDS: POTASSIUM CHL 20 Meq TABLET PO SCH (10:36)
[2018-07-07] MEDS: CYANOCOBALAMIN (B-12) 1000 MCG/1 ML VIAL IM SCH (10:40)
[2018-07-07] MEDS: LEVOFLOXACIN 500MG 100 ML IV SCH (10:41)
--- NOTE | 2018-07-07 12:41 | NUR ---
Nutrition Follow-up Notes Wt.: 64.2 kg Pt was sleeping with no family by bedside. per pt records pt s/p EGD and with esophagitis. pt with no distress noted currently on full diet with ensure Enlive 1 carton tid with inadequate PO of 25% x 4 per RN doc Est. Needs: 1550 kcal to 1850 kcal (25-30 kcal/kgBW), 62 gms to 75 gms pro (1.0-1.2 gms/kgBW). Will continue to monitor pertinent labs and reassess nutrient need prn Labs: CA 7.7 L, ALB 3.0 L. Skin: Bo scale 17, mod risk, skin intact per potable water treatment operator. GI: Pt had 2 BM 07/04 per potable water treatment operator. PES: Altered nutrition related lab values r/t current/chronic medical condition aeb low. hypokalemia, hypocalcemia Increased nutrient needs r/t current medical condition aeb Severe anemia,NPO. Will continue to monitor PO intake, skin status, pertinent labs and weight trend. F/u in 2-3 days. Rec.: 1.) Advance gradually to oral diet when medically appropriate. 2.) Refer to RD for further nutrition education and weight monitoring upon discharged. 3.) Continue current plan of care.
[2018-07-07 13:00] VITALS: BP 144/90
[2018-07-07] MEDS: IRON SUCROSE COMPLEX 200 MG in SODIUM CHL 0.9% 100 ML IV SCH (13:19)
[2018-07-07] MEDS ORDERED: POTASSIUM CHL 20 Meq TABLET PO ONE (14:15)
--- NOTE | 2018-07-07 14:28 | NUR ---
re-assessment Per consult home health, home safety eval. BRICE order has been given to Jalil transplant case manager and she will send order to [facility] and to Yina transplant case manager. Addendum: 07/07/18 at 1429 by Iva Pedro Amended: Links added.
--- NOTE | 2018-07-07 14:54 | NUR ---
PATIENT HAS BEEN ACCEPTED AT [facility], START OF CARE WILL BE 24 TO 48 HOURS AFTER DISCHARGE. [phone]
--- NOTE | 2018-07-07 17:36 | NUR ---
PAGED PAGE OUT TO DR ADEN REGARDING MICRO LEFT FOR THE DAY. NO WAY TO RECEIVE RESULTS FOR BLOOD CULTURES. AWAITING RESPONSE.
--- NOTE | 2018-07-07 17:46 | NUR ---
SPOKE WITH DR ADEN INFORMED OF ISSUE REGARDING UNABLE TO OBTAIN BLOOD CULTURE RESULTS. NEW ORDERS RECEIVED TO CANCEL DISCHARGE, ORDERS READ BACK AND VERIFIED. WILL CARRY OUT RECEIVED. CONTINUING TO MONITOR PATIENT. Addendum: 07/07/18 at 1907 by ASHA BELTRAN RN ORDERS FOR COMMUNICATION ORDER RECEIVED AND PLACED REGARDING POTASSIUM LEVEL.
--- NOTE | 2018-07-07 18:30 | NUR ---
END OF SHIFT NOTE PATIENT RESTING COMFORTABLY IN BED AT THIS TIME. NO S/S OF DISTRESS OR SOB NOTED. BED IN LOWEST LOCKED POSITION, CALL LIGHT WITHIN REACH. WILL ENDORSE CARE TO NOC RN.
--- NOTE | 2018-07-07 19:30 | NUR ---
Opening shift note Patient in bedside commode assisted by PUMP MACHINE OPERATOR. Patient alert and oriented x 4, verbally coherent, able to make needs known. Patient's respiration even and unlabored, denies pain and discomfort at this time. Plan of care discussed, patient verbalized understanding. All needs attended, will continue to monitor.
[2018-07-07] MEDS: ACETAMINOPHEN 325 MG TAB PO PRN (21:31)
[2018-07-07 22:00] VITALS: BP 131/83
--- NOTE | 2018-07-07 22:30 | NUR ---
REASSESSED TEMPERATURE AT 98.5. PATIENT STABLE WITH NO COMPLAINTS OF PAIN OR DISCOMFORT AT THIS TIME.
--- NOTE | 2018-07-07 22:44 | NUR ---
ELEVATED TEMPERATURE 101.9 PT REFUSES COLD COMPRESS. ADMINISTERED TYLENOL ORDERED. WILL CONTINUE TO MONITOR. Addendum: 07/07/18 at 2252 by Makeda Bernal RN CORRECT TIME AT 2131H
[2018-07-08] MEDS: MORPHINE SULF INJ 2 MG/ML SYRINGE 1ML IV PRN ×3 (00:10→13:11)
[2018-07-08] MEDS: D5W/SOD CHLO 0.9% 1,000 ML IV SCH ×2 (01:19→14:50)
[2018-07-08 05:00] VITALS: BP 142/89
[2018-07-08 05:10] LABS: Calcium 7.5 mg/dL (8.5-10.1); Potassium 3.7 mmol/L (3.5-5.1)
[2018-07-08 05:13] LABS: BUN/Creatinine Ratio 13.9
[2018-07-08 05:15] LABS: % Iron Saturation 71.9 % (15-50)
[2018-07-08] MEDS: metroNIDAZOLE 500MG/100ML 100 ML IV SCH ×2 (06:13→15:03)
--- NOTE | 2018-07-08 07:15 | NUR ---
Opening Shift Note Received report from Lottie GUILLEN. Assumed care of patient, awake and alert. No S/S of distress/SOB. Complained tolerable generalized pain. Instructed on POC and to call for assist PRN, will continue to monitor for changes Q1hr and PRN.
[2018-07-08] MEDS: Ensure HIGH Protein Vanilla 8oz Bottle PO SCH ×2 (07:45→12:24)
[2018-07-08 08:00] VITALS: BP 125/74
[2018-07-08 08:20] VITALS: BP 125/74
[2018-07-08] MEDS: LEVOFLOXACIN 500MG 100 ML IV SCH (09:19)
[2018-07-08] MEDS: CYANOCOBALAMIN (B-12) 1000 MCG/1 ML VIAL IM SCH (09:20)
[2018-07-08] MEDS: POTASSIUM CHL 20 Meq TABLET PO SCH (09:21)
--- NOTE | 2018-07-08 10:15 | NUR ---
CALLED MICROBIOLOGY, CONFIRMED THAT BLOOD CULTURE IS NEGATIVE. DR. ADEN ORDERED BY PHONE TO DISCHARGE PATIENT TODAY. FF UP GI RECOMMENDED OUTPATIENT.
[2018-07-08 12:28] VITALS: BP 121/68
--- NOTE | 2018-07-08 13:16 | NUR ---
IM COVERING FOR GABBY LUND RN. PT C/O RIGHT BACK PAIN 10/21, MORPHINE 2MG IV Q6 PRN GIVEN ORDERED, WILL REASSESS PAIN LEVEL.
[2018-07-08] MEDS: IRON SUCROSE COMPLEX 200 MG in SODIUM CHL 0.9% 100 ML IV SCH (13:38)
[2018-07-08 14:32] VITALS: BP 121/68
--- NOTE | 2018-07-08 17:35 | NUR ---
Discharge instructions given as ordered. Encourage to follow up with PMD as instructed. All questions and concerns addressed. Patient verbalized understanding. IV removed with catheter intact, pressure dressing applied. Telemetry unit returned to [facility]. Patient taken to vehicle via wheelchair with all personal belongings, accompanied by staff and family member. No distress noted at time of departure.
== END 2018-07-08 17:35 | disposition home health service (06) | DRG 812 ==
LOC: ER 10:44 → TELE 15:28 → TELE-WESTW 07-02 03:17
PROVIDERS: ADMIT Nurse Practitioner Acute Care; ATTEND Internal Medicine
PROC: 30233N1 Transfusion of Nonautologous Red Blood Cells into Peripheral Vein, Percutaneous Approach (ICD-10-PCS; principal; 2018-07-01)
PROC: 0DJ08ZZ Inspection of Upper Intestinal Tract, Via Natural or Artificial Opening Endoscopic (ICD-10-PCS; 2018-07-03)
DX: D50.9 Iron deficiency anemia, unspecified (principal); K31.6 Fistula of stomach and duodenum; E87.6 Hypokalemia; F31.9 Bipolar disorder, unspecified; F20.9 Schizophrenia, unspecified; G89.29 Other chronic pain; K29.70 Gastritis, unspecified, without bleeding; K21.0 Gastro-esophageal reflux disease with esophagitis; D53.9 Nutritional anemia, unspecified; F51.04 Psychophysiologic insomnia; K31.4 Gastric diverticulum; F41.9 Anxiety disorder, unspecified; E83.42 Hypomagnesemia; E53.8 Deficiency of other specified B group vitamins; Z90.49 Acquired absence of other specified parts of digestive tract; Z90.710 Acquired absence of both cervix and uterus; Z98.84 Bariatric surgery status; Z83.3 Family history of diabetes mellitus; Z82.49 Family history of ischemic heart disease and other diseases of the circulatory system; Z84.1 Family history of disorders of kidney and ureter; Z88.8 Allergy status to other drugs, medicaments and biological substances
CPT/HCPCS: 36415; 36430; 43235; 71045; 74247; 74250; 80048; 80053; 81001; 82270; 82728; 82746; 83540; 83550; 83735; 84100; 84132; 84443; 84484; 85014; 85018; 85025; 85610; 85730; 86850; 86900; 86901; 86920; 87040; 93005; 93306; 96360; 96361; A6257; G0378; J1956; J2250; J2405; J3480; J3490; J7042